=== PATIENT | male | born 1945 | race American Indian/Alaskan Native ===

== ENCOUNTER 2017-10-25 10:06 | Day surgery (SDC) | payer MEDICARE, BC ==
[2017-10-22 12:23] VITALS: BMI 28.4
[2017-10-25 10:45] LABS: BASO # 0.03 K/mm3 (0.0-2.0); BASO % 0.3 % (0.0-3.0); EOS # 0.2 (0.0-0.7); GRAN # 6.13 (1.4-6.5); GRAN % 68.6 % (50.0-68.0); HEMOGLOBIN 14.1 g/dL (14.0-18.0); LYMPH # 1.7 (1.2-3.4); LYMPH % 18.4 % (22.0-35.0); MEAN CORPUSCULAR HEMOGLOBIN 29.2 pg (25.0-35.0); MEAN CORPUSCULAR HGB CONC 33.6 g/dl (31.0-37.0); MEAN PLATELET VOLUME 9.9 fl (7.0-11.0); MONO % 10.7 % (1.0-6.0); RBC 4.83 10^6/uL (3.5-6.1); RED CELL DISTRIBUTION WIDTH 14.7 % (11.5-14.5)
[2017-10-25 10:56] LABS: INR 0.99; PARTIAL THROMBOPLASTIN TIME 29.8 Seconds (25.1-36.5); PROTHROMBIN TIME 11.4 SECONDS (9.4-12.5)
[2017-10-25 11:11] LABS: CALCIUM 9.9 mg/dL (8.4-10.5)
[2017-10-25] MEDS ORDERED: Nitroglycerin 50mg in D5W 50 MG/250 ML BOTTLE IV ONE (14:03)
[2017-10-25] MEDS ORDERED: Lidocaine PF 2% (5 ml) Inj (For Cardiac Arrhy) ONE (14:03)
[2017-10-25] MEDS ORDERED: Iodixanol 320 MG/ML 200 ML BOTTLE IV ONE (14:03)
[2017-10-25] MEDS ORDERED: Midazolam 2 MG/2 ML VIAL ONE (14:13)
[2017-10-25 15:50] VITALS: RESP 18; TEMP 97.8; O2SAT 96
[2017-10-25 16:35] VITALS: BP 134/72; PULSE 92
--- NOTE | 2017-10-25 18:22 | VASCULAR ---
PROCEDURE: 1. Left upper extremity AV graft angio HISTORY: End-stage renal disease. Malfunctioning AV access PHYSICIAN(S): Gerhard Marcelo MD. TECHNIQUE: The relative risks and indications of the procedure were explained to the patient and consent obtained. The patient was placed supine on the angiography table and the left arm prepped and draped in usual sterile fashion. Conscious sedation and monitoring provided throughout the procedure by a nurse. The left arm AV graft was punctured near the elbow in an antegrade direction with a micropuncture set under ultrasound guidance. A 5 Cook Islander catheter was placed. An overlapping left upper extremity AV graft angiogram was performed. Central venous imaging was obtained. Pressure was applied near the access site and reflux of the arterial anastomosis performed. The catheter was removed and hemostasis obtained. FINDINGS: A composite HERO graft is seen extending from the left brachial artery to the right atrium. The arterial anastomosis is widely patent. The graft is patent. The previously placed self expanding stents are patent without significant in stent restenosis. . IMPRESSION: 1. Patent left upper extremity AV graft as described above. 2. The graft in the upper arm was marked under ultrasound guidance to facilitate puncture.
== END 2017-10-25 17:00 | disposition home or self-care (01) ==
LOC: SDSVAS 10:06
PROVIDERS: ATTEND Radiology Vascular & Interventional Radiology
DX: T82.41XA Breakdown (mechanical) of vascular dialysis catheter, initial encounter (principal); Y83.2 Surgical operation with anastomosis, bypass or graft as the cause of abnormal reaction of the patient, or of later complication, without mention of misadventure at the time of the procedure; N18.6 End stage renal disease
CPT/HCPCS: 36415; 36901; 80048; 85025; 85610; 85730; 99152; C1760; J1644; J2250; J2405; J3010; Q9966

== ENCOUNTER 2017-11-02 09:40 | Day surgery (SDC) | payer MEDICARE, BC ==
[2017-11-02 10:00] VITALS: BMI 23.0
--- NOTE | 2017-11-02 10:51 | ED PDOC ---
Arrival/HPI - General Chief Complaint: Upper Extremity Problem/Injury Time Seen by Provider: 11/02/17 10:15 Historian: Patient - History of Present Illness Narrative History of Present Illness (Text): 11/02/17 10:50 A 72 year old male, whose past medical history includes ESRD (HD on M,W,F), CAD , HTN, DM, presents to the emergency department for further evaluation of his fistula on the left arm. He notes that he was seen in the emergency department 1 week ago for further evaluation of his fistula from which he had a clot removed by Dr. Marcelo. The patient notes that has felt short of breath with a non - productive cough, experiencing vomiting and nausea. Patient notes that he was unable to get dialyzed today due to a clot within his AV fistula. He denies fevers, chills, headache, dizziness, sore throat, chest pain, abdominal pain, diarrhea, neck/back pain, urinary/bowel changes or any other complaint. Time/Duration: Other (Yesterday ) Symptom Onset: Gradual Symptom Course: Unchanged Activities at Onset: Rest, Light Context: Home Past Medical History - Provider Review Nursing Documentation Reviewed: Yes - Travel History Have you recently traveled outside [place] w/in the past 3 mons?: No - Tetanus Immunization Tetanus Immunization: Unknown - Cardiac Hx Cardiac Disorders: Yes Hx DE: Yes (1994) Hx Hypertension: Yes Hx Pacemaker: No - Pulmonary Hx Respiratory Disorders: Yes Hx Bronchitis: Yes Hx Pneumonia: Yes - Neurological Hx Neurological Disorder: Yes HX Cerebrovascular Accident: Yes (2000) Hx Paralysis: No - HEENT Hx HEENT Disorder: No - Renal Hx Renal Disorder: Yes Hx Dialysis: Yes Date of Last Dialysis Treatment: 10/31/17 - Endocrine/Metabolic Hx Endocrine Disorders: Yes Hx Diabetes Mellitus Type 2: Yes - Hematological/Oncological Hx Blood Disorders: Yes Hx Blood Transfusions: Yes Hx Blood Transfusion Reaction: No - Integumentary Hx Dermatological Disorder: No - Musculoskeletal/Rheumatological Hx Musculoskeletal Disorders: Yes Hx Unsteady Gait: Yes (cane) - Gastrointestinal Hx Gastrointestinal Disorders: Yes Hx Gastrointestinal Ulcer: Yes - Genitourinary/Gynecological Hx Genitourinary Disorders: Yes (ANURIA) - Psychiatric Hx Psychophysiologic Disorder: No Hx Emotional Abuse: No Hx Physical Abuse: No Hx Substance Use: No - Surgical History Hx Open Heart Surgery: Yes - Anesthesia Hx Anesthesia: Yes Hx Anesthesia Reactions: No Hx Malignant Hyperthermia: No - Suicidal Assessment Feels Threatened In Home Enviroment: No Family/Social History - Physician Review Nursing Documentation Reviewed: Yes Family/Social History: No Known Family HX Smoking Status: Never Smoked Hx Alcohol Use: No Hx Substance Use: No Allergies/Home Meds Allergies/Adverse Reactions: Allergies No Known Allergies Allergy (Verified 08/25/15 10:13) Home Medications: Home Meds Medication Instructions Recorded Confirmed Clopidogrel [Plavix] 75 mg PO DAILY 11/13/11 11/02/17 Cinacalcet [Sensipar] 30 mg PO DAILY 04/21/13 11/02/17 GlipiZIDE [Glipizide] 5 mg PO DAILY 10/18/15 11/02/17 Insulin Glargine, Recombina 20 unit SC HS 10/18/15 11/02/17 [Lantus] Nitroglycerin [Nitrostat] 0.4 mg SL PRN PRN 10/18/15 11/02/17 Simvastatin 10 mg PO DAILY 10/18/15 11/02/17 Aspirin [Ecotrin] 81 mg PO DAILY 10/22/17 11/02/17 Midodrine [Proamatine] 10 mg PO MWF 10/22/17 11/02/17 Mometasone/Formoterol [Dulera 100 1 puff INH DAILY PRN 10/22/17 11/02/17 Mcg/5 Mcg Inhaler] Vit B Comp No.3/Folic/C/Biotin 1 tab PO DAILY 11/02/17 11/02/17 [Jennifer-Keira Rx Tablet] Review of Systems - Physician Review All systems were reviewed & negative as marked: Yes - Review of Systems Constitutional: absent: Fevers Respiratory: SOB, Cough Cardiovascular: absent: Chest Pain Gastrointestinal: Nausea, Vomiting. absent: Abdominal Pain, Stool Changes, Diarrhea Genitourinary Male: absent: Urinary Output Changes Musculoskeletal: Other (Left upper extremity fistula.). absent: Back Pain, Neck Pain Neurological: absent: Headache, Dizziness Physical Exam Vital Signs Reviewed: Yes Vital Signs Temp Pulse Resp BP Pulse Ox 11/02/17 15:50 97.7 F 82 20 150/85 100 11/02/17 15:30 97.7 F 87 20 150/85 100 11/02/17 15:14 97.7 F 82 20 150/85 100 11/02/17 15:04 98.0 F 79 19 128/76 96 11/02/17 14:49 98.0 F 79 19 129/76 96 11/02/17 14:34 98.0 F 85 19 165/87 H 99 11/02/17 12:54 80 19 98 11/02/17 12:52 98.0 F 80 19 140/80 98 11/02/17 09:49 97.9 F 76 18 146/87 100 Temperature: Afebrile Blood Pressure: Normal Pulse: Regular Respiratory Rate: Normal Appearance: Positive for: Well-Appearing, Non-Toxic, Comfortable Pain Distress: None Mental Status: Positive for: Alert and Oriented X 3 - Systems Exam Head: Present: Atraumatic, Normocephalic Pupils: Present: PERRL Extroacular Muscles: Present: EOMI Conjunctiva: Present: Normal Mouth: Present: Moist Mucous Membranes Neck: Present: Normal Range of Motion Respiratory/Chest: Present: Other (Bibalisar crackles bilaterally. Sternotomy scar noted. ) Cardiovascular: Present: Regular Rate and Rhythm, Normal S1, S2. No: Murmurs Abdomen: No: Tenderness, Distention, Peritoneal Signs Back: Present: Normal Inspection Upper Extremity: Present: NORMAL PULSES (Good radial pulse. Strong and brisk. ) , Other (AV fistula noted in L upper extremity. Palpable thrill noted.). No: Cyanosis, Edema, Tenderness (No tenderness to palpation of the arm. ) Lower Extremity: Present: Normal Inspection. No: Edema Neurological: Present: GCS=15, CN II-XII Intact, Speech Normal Skin: Present: Warm, Dry, Normal Color, Other (Excoriations noted to old healed fistula noted in L forearm). No: Rashes Psychiatric: Present: Alert, Oriented x 3, Normal Insight, Normal Concentration Medical Decision Making ED Course and Treatment: 11/02/17 11:02 Impression: A 72 year old male presents to the emergency department for further evaluation of his left upper extremity AV fistula. Plan: -- EKG -- Chest X-ray -- Duplex Hemodialysis Access Ultrasound -- Labs -- Zofran -- Reassess and disposition Prior Visits: Notes and results from previous visits were reviewed. Progress Notes: 11/02/17 11:45: Ultrasound report shows no complete occlusion of the AV fistula. Will consult Dr. Xander Marcelo (Interventional Radiologist). 11/02/17 12:15 Call back from IR stating patient is in queue for procedure under Dr. Gann(IR) when he arrives at the hospital. 11/02/17 15:35 Patient at IR. Labs reviewed. Will keep patient for Observation. Case endorsed to Dr. Mabel Douglas(hospitalist) who will resume the patient's care. Original chemistries hemolyzed; will collect from patient once he returns from IR. 11/02/17 17:[address] Gann who states he discharged the patient from IR to go straight to outpatient dialysis. Spoke to dialysis nurse who was also unaware of patient' s return to the ED and will endorse to care team to return patient to ED for Observation. She will communicate with the dialysis team to return patient back to ED once dialysis is completed. Updated Dr. Douglas on patient's status who will discuss treatment options with patient. 10/23/17 17:[address] Mabel Douglas whom after discussion with patient, states she will sign patient out against medical advice. - Lab Interpretations Lab Results: 11/02/17 11:54 Lab Results 11/02/17 11:54: PT 12.1, INR 1.05, APTT 33.1 11/02/17 11:54: WBC 9.0, RBC 4.91, Hgb 14.3, Hct 42.1, MCV 85.7, MCH 29.1, MCHC 34.0, RDW 14.6 H, Plt Count 186, MPV 10.4, Gran % 58.1, Lymph % (Auto) 30.0, Bladen % (Auto) 9.4 H, Eos % (Auto) 2.3, Baso % (Auto) 0.2, Gran # 5.22, Lymph # ( Auto) 2.7, Bladen # (Auto) 0.9 H, Eos # (Auto) 0.2, Baso # (Auto) 0.02, ESR 44 H I have reviewed the lab results: Yes - RAD Interpretation Narrative RAD Interpretations (Text): PROCEDURE: Duplex hemodialysis access Dictator : Master Perez MD Report Date : 11/02/2017 11:24:23 IMPRESSION: Thrombosed left arm AVG/HERO. Chest X-ray Dictator : David Wganer MD Report Date : 11/02/2017 12:10:30 IMPRESSION: Moderate cardiomegaly. No active disease Radiology Orders: 11/02/17 10:35 CHEST PORTABLE [RAD] Stat 11/02/17 10:51 DUPLEX HEMODIALYSIS ACCESS [US] Stat 11/02/17 13:00 CAR PERIPHERAL VASCULAR ORDER [VASCULAR] Stat - EKG Interpretation EKG Interpretation (Text): 11/02/17 12:12 EKG: Ordered, reviewed, and independently interpreted the EKG. Rate : 76 BPM Rhythm : NSR Interpretation : 1st Degree AV block. No hyperacute T- waves or U- waves noted on EKG. Interpreted by ED Physician: Yes Type: 12 lead EKG - Medication Orders Current Medication Orders: Discontinued Medications Ondansetron HCl (Zofran Inj) 4 mg IVP STAT STA Stop: 11/02/17 10:56 Last Admin: 11/02/17 11:56 Dose: Not Given Non-Admin Reason: Patient Refused - Scribe Statement The provider has reviewed the documentation as recorded by the Scribe Aimee Hutton Provider Scribe Attestation: All medical record entries made by the Scribe were at my direction and personally dictated by me. I have reviewed the chart and agree that the record accurately reflects my personal performance of the history, physical exam, medical decision making, and the department course for this patient. I have also personally directed, reviewed, and agree with the discharge instructions and disposition. Disposition/Present on Arrival - Present on Arrival Any Indicators Present on Arrival: No History of DVT/PE: No History of Uncontrolled Diabetes: No Urinary Catheter: No History of Decub. Ulcer: No History Surgical Site Infection Following: None - Disposition Have Diagnosis and Disposition been Completed?: Yes Diagnosis: AV fistula thrombosis Disposition: HOSPITALIZED Disposition Time: 15:25 Patient Plan: Observation Condition: FAIR
--- NOTE | 2017-11-02 11:25 | US ---
PROCEDURE: Duplex hemodialysis access HISTORY: ESRD, LEFT AVG/HERO thrombosed PRIORS: None. TECHNIQUE: LEFT upper extremity AV graft hemodialysis access evaluation. Flow was assessed with color Doppler, compressibility, assessment of phasic flow and augmentation response. FINDINGS: LEFT upper extremity AV graft hemodialysis access is thrombosed. No flow seen within outflow vein stent. The brachial artery is unremarkable. IMPRESSION: Thrombosed left arm AVG/HERO.
--- NOTE | 2017-11-02 12:12 | RAD ---
Date of service: 11/02/2017 HISTORY: sob COMPARISON: 08/07/2017 FINDINGS: LUNGS: No active pulmonary disease. PLEURA: No significant pleural effusion identified, no pneumothorax apparent. CARDIOVASCULAR: Moderate cardiomegaly and aortic tortuosity. OSSEOUS STRUCTURES: Sternal wires VISUALIZED UPPER ABDOMEN: Normal. OTHER FINDINGS: Left-sided dialysis catheter in the right atrium IMPRESSION: Moderate cardiomegaly. No active disease
[2017-11-02 12:18] LABS: BASO # 0.02 K/mm3 (0.0-2.0); BASO % 0.2 % (0.0-3.0); EOS # 0.2 (0.0-0.7); EOS % 2.3 % (1.5-5.0); GRAN # 5.22 (1.4-6.5); GRAN % 58.1 % (50.0-68.0); HEMOGLOBIN 14.3 g/dL (14.0-18.0); LYMPH # 2.7 (1.2-3.4); MEAN CELL VOLUME 85.7 fl (80.0-105.0); MEAN CORPUSCULAR HEMOGLOBIN 29.1 pg (25.0-35.0); MEAN PLATELET VOLUME 10.4 fl (7.0-11.0); MONO # 0.9 (0.1-0.6); MONO % 9.4 % (1.0-6.0); RBC 4.91 10^6/uL (3.5-6.1); RED CELL DISTRIBUTION WIDTH 14.6 % (11.5-14.5)
[2017-11-02 12:24] LABS: INR 1.05; PARTIAL THROMBOPLASTIN TIME 33.1 Seconds (25.1-36.5); PROTHROMBIN TIME 12.1 SECONDS (9.4-12.5)
[2017-11-02] MEDS ORDERED: Nitroglycerin 50mg in D5W 50 MG/250 ML BOTTLE IV ONE (12:53)
[2017-11-02] MEDS ORDERED: Iodixanol 320 mg/ml 150 ml Bottle IV ONE (13:22)
[2017-11-02] MEDS ORDERED: Midazolam 2 MG/2 ML VIAL ONE (13:49)
--- NOTE | 2017-11-02 14:24 | PCM.SURG1 ---
Surgeon's Initial Post Op Note - Surgeon's Notes Surgeon: Master Gann MD Physical Education Professor: NONE Type of Anesthesia: Moderate Sedation{RN} Pre-Operative Diagnosis: Thrombosed left arm AVG Operative Findings: US showed a thrombosed AVG. There is severe in stent stenosis of outflow vein. HERO catheter in place. Post-Operative Diagnosis: Thrombosed left arm AVG Operation Performed: Left arm AVG thrombectomy, SHOEMAKER APPRENTICE outflow vein stenosis. Specimen/Specimens Removed: None Estimated Blood Loss: EBL {In ML}: 5 Blood Products Given: N/A Drains Used: No Drains Post-Op Condition: Fair Date of Surgery/Procedure: 11/02/17 Time of Surgery/Procedure: 14:20
[2017-11-02 15:19] VITALS: BP 150/85; RESP 20; TEMP 97.7; O2SAT 100
[2017-11-02 16:28] VITALS: PULSE 82
--- NOTE | 2017-11-02 16:40 | VASCULAR ---
Date of procedure: 11/02/2017 Procedure: 1. Hemodialysis fistulagram, CPT 33342 2. Thrombectomy 3. Balloon angioplasty outflow vein stenosis, CPT 53548 Medications: Versed 1 mg, 50 mcg Fentanyl, 3 cc 1% lidocaine Contrast: 50 cc Visipaque 320 Patient received a IV sedation administered by the IR nurse along with physiologic monitoring. HISTORY: Endstage renal disease, thrombosed left arm HERO AV graft. TECHNIQUE: Following informed consent and procedure time-out on the interventional table in the left arm prepped and draped in the usual sterile fashion. Ultrasound of left arm showed a showed thrombosed graft. The graft was accessed antegrade direction with micropuncture technique under direct ultrasound guidance. A guidewire was advanced into the outflow vein and the 5 fr dilator was exchanged for a 6 Swiss vascular sheath. The graft was then accessed in retrograde direction towards arterial anastomosis with micropuncture technique under direct ultrasound guidance. A guidewire is advanced into the brachial artery. A 6 Swiss sheath was advanced over the wire. A 5 Swiss catheter was advanced into the subclavian vein central venogram performed. A 5 Swiss catheter was positioned in the brachial artery and brachial artery angiogram performed. A Melisa compliant balloon was position near the arterial anastomosis. inflated and thrombus was pulled into the graft. The Melisa balloon was reposition within the arterial limb of the graft inflated and thrombus was pushed centrally. Percutaneous balloon angioplasty is performed in the outflow graft segment using a 7 mm x 20 cm balloon. Following the pull-push technique of thrombectomy, a repeat fistulogram showed improved forward flow throughout the AV graft. An area of luminal irregularity was noted within the outflow graft. This was again treated with balloon angioplasty with significant improvement. Post stent repeat fistulogram showed no residual stenosis in the outflow segment. There was great antegrade flow throughout the graft. Arterial anastomosis is normal. IMPRESSION: Thrombosed left arm HERO catheter. Utilizing a pull- push technique, thrombectomy was successfully performed across the thrombosed graft and HERO catheter. The graft is patent and can be used for hemodialysis.
--- NOTE | 2017-11-02 18:31 | CP.PCM.PN ---
<Lisa Brito - Last Filed: 11/02/17 18:29> Subjective - Date & Time of Evaluation Date of Evaluation: 11/02/17 Time of Evaluation: 18:29 - Subjective Subjective: ED physician inadvertently placed admission order after discharge order placed by IR, Dr. Gann at 2:29pm. Medicine team followed admission order, but patient did not want to be seen or examined. We will execute the discharge order. Patient does not meet criteria for observation or admission. Objective - Vital Signs/Intake and Output Vital Signs (last 24 hours): Temp Pulse Resp BP Pulse Ox 97.7 F 82 20 150/85 100 11/02/17 15:50 11/02/17 15:50 11/02/17 15:50 11/02/17 15:50 11/02/17 15:50 - Labs Labs: PT 12.1 SECONDS (9.4-12.5) 11/02/17 11:54 INR 1.05 11/02/17 11:54 APTT 33.1 Seconds (25.1-36.5) 11/02/17 11:54 <Chika Douglas - Last Filed: 11/03/17 15:55> Objective - Vital Signs/Intake and Output Vital Signs (last 24 hours): Temp Pulse Resp BP Pulse Ox 97.7 F 82 20 150/85 100 11/02/17 15:50 11/02/17 15:50 11/02/17 15:50 11/02/17 15:50 11/02/17 15:50 - Labs Labs: 11/02/17 11:54 PT 12.1 SECONDS (9.4-12.5) 11/02/17 11:54 INR 1.05 11/02/17 11:54 APTT 33.1 Seconds (25.1-36.5) 11/02/17 11:54 Attending/Attestation - Attestation I have reviewed all pertinent clinical information, including history, physical exam and plan: Yes Notes (Text): Patient went to his regular dialysis this morning 11/02/17. Patient was found to have a clot in his AV fistula. At that time patient was sent to the emergency room and sent to IR from the ER. Patient had a successful procedure done. Patient was discharged from IR and sent to outpatient dialysis. After being discharged from IR, ER physician placed an admission order as she was unaware patient had been discharged. Went to see patient who refused to be seen or examined. Patient did not meet criteria for observation or admission and was discharged from outpatient dialysis.
--- NOTE | 2017-11-03 05:11 | CARD ---
APPROVED REPORT Date of service: 11/02/2017 EKG Measurement Heart [id number] <Conclusion> Sinus rhythm with 1st degree AV block Possible Left atrial enlargement Nonspecific intraventricular conduction delay T wave abnormality, consider lateral ischemia Abnormal ECG
== END 2017-11-02 16:04 | disposition home or self-care (01) ==
LOC: ED 09:40 → CATH 13:15 → SDSVAS 13:15 → ERH 15:46 → UNDOADMOB 15:46 → CATH 16:04 → ERH 16:45 → ED 19:01
PROVIDERS: ATTEND Radiology Vascular & Interventional Radiology
DX: T82.868A Thrombosis due to vascular prosthetic devices, implants and grafts, initial encounter (principal); E11.22 Type 2 diabetes mellitus with diabetic chronic kidney disease; I12.0 Hypertensive chronic kidney disease with stage 5 chronic kidney disease or end stage renal disease; I25.10 Atherosclerotic heart disease of native coronary artery without angina pectoris; I25.2 Old myocardial infarction; I44.0 Atrioventricular block, first degree; N18.6 End stage renal disease; Z79.4 Long term (current) use of insulin; Z79.82 Long term (current) use of aspirin; Z86.73 Personal history of transient ischemic attack (TIA), and cerebral infarction without residual deficits; Z99.2 Dependence on renal dialysis
CPT/HCPCS: 36904; 71045; 76937; 85025; 85610; 85651; 85730; 93005; 93990; 99152; 99153; 99285; C1725; C1757; C1769; C1894; J1644 ×2; J2250; J3010; Q9967